=== PATIENT | female | born 1965 ===

== ENCOUNTER 2017-03-23 10:49 | Outpatient (CLI) | payer MEDICARE ==
--- NOTE | 2017-03-23 14:14 | XRay Report ---
XRAY BILATERAL HIPS AND AP PELVIS THREE VIEWS: 12/21/17 CLINICAL: Bilateral hip pain FINDINGS: Right: No fracture or dislocation. Mild osteoarthritis with superolateral joint space narrowing and a small superolateral osteophyte. Normal soft tissues. Left: No fracture or dislocation. Moderate osteoarthritis with superolateral joint space narrowing and osteophytes. A prominent inferior osteophyte.Normal soft tissues. Prominent bilateral iliac wing enthesophytes. The pelvic bones are otherwise intact.Bilateral SI joint sclerosis, greater on the right than the left. No erosions. IMPRESSION: Bilateral hip osteoarthritis, worse on the left than the right. Bilateral iliac wing enthesopathy.Bilateral sacroiliitis, right worse than left.
== END 2017-03-23 10:50 | disposition home or self-care (01) ==
LOC: SPVIMAG 10:49
PROVIDERS: ATTEND Orthopaedic Surgery Sports Medicine
DX: M16.0 Bilateral primary osteoarthritis of hip (principal); M76.892 Other specified enthesopathies of left lower limb, excluding foot; M76.891 Other specified enthesopathies of right lower limb, excluding foot; M46.1 Sacroiliitis, not elsewhere classified
CPT/HCPCS: 73521

== ENCOUNTER 2017-05-15 15:56 | Outpatient (CLI) | payer MEDICARE ==
--- NOTE | 2017-05-15 19:18 | XRay Report ---
FINAL REPORT EXAM: XR SPINE LUMBOSACRAL 2-3V HISTORY: LUMBAR SPINE PAIN TECHNIQUE: Lumbar spine 3 views PRIORS: None. FINDINGS: Vertebral bodies demonstrate normal height and alignment. The disc spaces are within normal limits. There is no evidence of spondylolisthesis. Transverse and spinous processes are intact SI joints are unremarkable. IMPRESSION: Negative lumbar spine series
== END 2017-05-15 15:57 | disposition home or self-care (01) ==
LOC: SPVIMAG 15:56
PROVIDERS: ATTEND Orthopaedic Surgery Sports Medicine
DX: M54.5 Low back pain (principal)
CPT/HCPCS: 72100